=== PATIENT | male | born 1925 | race Caucasian/White ===

== ENCOUNTER 2016-11-16 00:25 | Emergency (ER) | payer OTHER ==
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
[2016-11-16] MEDS ORDERED: SODIUM CHLORIDE 500 ML IV STA (01:18)
[2016-11-16 01:34] LABS: BASOPHIL 0.7 % (0-2.0); EOSINOPHIL 1.4 % (0-4.5); MCH 30.3 pg (25.7-33.7); MCHC 34.6 g/dl (32.0-35.9); MEAN CELL VOLUME 87.6 fl (80-96); MEAN PLT VOLUME 8.9 fl (7.5-11.1); NEUTROPHILS 78.8 % (42.8-82.8); PLATELET COUNT 137 K/MM3 (134-434); RDW 13.7 % (11.9-15.9); WHITE BLOOD COUNT 12.3 K/mm3 (4.0-10.0)
[2016-11-16 01:56] LABS: ALBUMIN 3.8 g/dl (3.4-5.0); ANION GAP 11 (8-16); BILIRUBIN,TOTAL 1.5 mg/dL (0.2-1.0); CALCIUM 8.9 mg/dL (8.5-10.1); CO2 26 mmol/L (21-32); CREATININE 0.7 mg/dL (0.7-1.3); GLUCOSE,RANDOM 253 mg/dL (74-106); MAGNESIUM 1.8 mg/dL (1.8-2.4); PHOSPHOROUS 2.8 mg/dL (2.5-4.9); SGOT/AST 26 U/L (15-37); SGPT/ALT 30 U/L (12-78); TOT PROT 7.5 g/dl (6.4-8.2)
[2016-11-16 01:59] LABS: ALK PHOS 176 U/L (45-117); CPK 116 IU/L (39-308); TROPONIN I 0.02 ng/ml (0.00-0.05)
--- NOTE | 2016-11-16 02:14 | PDOC ---
Attending Attestation - Resident Resident Name: Danae Cervantes - HPI HPI: 11/16/16 02:11 Was on the floor an unknown amount of time. Patient denies any complaints. Patient however does have a history of dementia and family is concerned about lettting him go home, - Physicial Exam PE: 11/16/16 02:14 Exam: General: Well-nourished well-developed individual, no acute distress HEENT: Throat: Normal, tonsils normal, no erythema or exudate Neck: Supple, no meningeal signs, no lymphadenopathy Eyes::Pupils equal reactive and round, extraocular motion intact Chest: Nontender to palpation Cardiac: S1-S2 normal, regular rate and rhythm, no murmurs rubs or gallops Respiratory: Lungs clear to auscultation bilateral Abdomen: Soft, nondistended, normal bowel sounds, nontender to palpation diffusely Extremities: Warm, dry, no cyanosis, clubbing, or edema Skin: No rashes Neuro: Alert and oriented x3, nonfocal exam, grossly intact, normal gait Psych: Normal mood and affect - Medical Decision Making 11/16/16 04:51 This is an 89-year-old male who came in status post fall. Has history of frequent falls. Worked up and evaluated with CAT scan and labs all of which were unremarkable. As possible admission for case management social worker and some evaluation with primary care doctor who felt patient could get those services as an outpatient. Patient discharged home with his family.
[2016-11-16 02:15] VITALS: BP 157/80; PULSE 76; TEMP 97.9; BMI 60.5
[2016-11-16 03:49] LABS: URINE APPEARANCE CLEAR; URINE BILIRUBIN NEGATIVE (NEGATIVE); URINE BLOOD NEGATIVE (NEGATIVE); URINE COLOR LTYELLOW; URINE GLUCOSE (UA) 3+ (NEGATIVE); URINE KETONE NEGATIVE (NEGATIVE); URINE LEUK ESTERASE NEGATIVE (NEGATIVE); URINE NITRITE NEGATIVE (NEGATIVE); URINE PROTEIN NEGATIVE (NEGATIVE); URINE UROBILINOGEN NEGATIVE mg/dL (0.2-1.0)
--- NOTE | 2016-11-18 16:54 | EKG ---
Test Reason : Blood Pressure : / mmHG Vent. 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 RATE HAS DECREASED Confirmed by CHIDI BERKOWITZ MD ([id number]) on 11/18/2016 4:54:22 PM Referred By: Confirmed By:CHIDI BERKOWITZ MD
== END 2016-11-16 04:44 | disposition home or self-care (01) ==
LOC: JER 00:25
PROC: 3E0337Z Introduction of Electrolytic and Water Balance Substance into Peripheral Vein, Percutaneous Approach (ICD-10-PCS; principal; 2016-11-16)
DX: Z04.8 Encounter for examination and observation for other specified reasons (principal); W19.XXXA Unspecified fall, initial encounter; Y93.89 Activity, other specified; Y92.038 Other place in apartment as the place of occurrence of the external cause; I10 Essential (primary) hypertension; E78.00 Pure hypercholesterolemia, unspecified; N40.0 Benign prostatic hyperplasia without lower urinary tract symptoms; E11.9 Type 2 diabetes mellitus without complications; Z79.84 Long term (current) use of oral hypoglycemic drugs; F03.90 Unspecified dementia, unspecified severity, without behavioral disturbance, psychotic disturbance, mood disturbance, and anxiety; Z91.81 History of falling
CPT/HCPCS: 36415; 70450-TC; 71010-TC; 80053; 81003; 82553; 83735; 84100; 84484; 85025; 87086; 93005; 93010; 96360; 99281-25